=== PATIENT | male | born 1965 | race Caucasian/White ===

== ENCOUNTER 2021-04-16 15:31 | Emergency (ER) | payer SELFPAY ==
[~2021-04-16] VITALS: Ht 172.7 cm; Wt 118.2 kg
[2021-04-16] MEDS ORDERED: ONDANSETRON PF 4 MG/2 ML VIAL. IVP ONE (16:00)
[2021-04-16] MEDS ORDERED: IV NORMAL SALINE 1,000ML 1,000 ML IV ONE (16:00)
--- NOTE | 2021-04-16 16:11 | PHYS DOC ---
Past History Past Medical History: Diabetes, Kidney Stones Additional Past Medical Histor: BPH Past Surgical History: Tonsillectomy Additional Past Surgical Histo: lyphoma removal on back Alcohol Use: Rarely General Adult EDM: Chief Complaint: FLANK PAIN HPI: HPI: 55-year-old male presents with right flank pain. The patient had sudden onset of right flank pain at work earlier today. He was on his way to the hospital when the pain subsided so he went back to work. The patient then had a second episode that was worse than the first. He continues to have discomfort in the right flank radiating to the right groin. His original pain was sharp and 8 out of 10. He is currently at a cramping pain 4 out of 10. He did have one episode of vomiting in the ED. He has a history of kidney stones all of which have passed without intervention. Denies fever or chills. He has no other complaints at this time. Review of Systems: Review of Systems: Constitutional: Denies fever or chills Eyes: Denies change in visual acuity HENT: Denies nasal congestion or sore throat Respiratory: Denies cough or shortness of breath Cardiovascular: Denies chest pain or edema GI: Denies abdominal pain, nausea, vomiting, bloody stools or diarrhea : Denies dysuria Musculoskeletal: Right flank pain Integument: Denies rash Neurologic: Denies headache, focal weakness or sensory changes Endocrine: Denies polyuria or polydipsia Lymphatic: Denies swollen glands Psychiatric: Denies depression or anxiety Current Medications: Current Meds: Current Medications Medications (Trade) Dose Ordered Sig/Brandy Start Time Stop Time Status Last Admin Dose Admin Ondansetron HCl (Zofran) 4 mg 1X ONCE 04/16/21 16:00 04/16/21 16:03 DC Sodium Chloride 1,000 ml @ 1,000 mls/hr 1X ONCE 04/16/21 16:00 04/16/21 16:59 Tamsulosin HCl (Flomax) 0.4 mg 1X ONCE 04/16/21 16:15 04/16/21 16:16 UNV Allergies: Allergies: Allergies Coded Allergies Type Severity Reaction Last Updated Verified No Known Drug Allergies 04/16/21 No Physical Exam: PE: Constitutional: Well developed, well nourished, morbidly obese, no acute distress, non-toxic appearance. [] HENT: Normocephalic, atraumatic, bilateral external ears normal, oropharynx moist, no oral exudates, nose normal. [] Eyes: PERRLA, EOMI, conjunctiva normal, no discharge. [] Neck: Normal range of motion, no tenderness, supple, no stridor. [] Cardiovascular: Heart rate regular rhythm, no murmur [] Lungs & Thorax: Bilateral breath sounds clear to auscultation [] Abdomen: Bowel sounds normal, soft, no tenderness, no masses, no pulsatile masses. [] Skin: Warm, dry, no erythema, no rash. [] Back: No tenderness, mild right CVA tenderness. [] Extremities: No tenderness, no cyanosis, no clubbing, ROM intact, no edema. [] Neurologic: Alert and oriented X 3, normal motor function, normal sensory function, no focal deficits noted. [] Psychologic: Affect normal, judgement normal, mood normal. [] Current Patient Data: Vital Signs: Vital Signs Date Time Temp Pulse Resp B/P (MAP) Pulse Ox O2 Delivery O2 Flow Rate FiO2 04/16/21 15:53 98.0 71 18 160/92 (114) 98 Room Air EKG: EKG: [] Radiology/Procedures: Radiology/Procedures: [] Impressions: Exam: CT of abdomen and pelvis without contrast INDICATION: Right flank pain, hematuria TECHNIQUE: Sequential axial images through the abdomen and pelvis obtained without IV contrast. Sagittal and coronal reformatted images were reconstructed from the axial data and reviewed. Exposure: One or more of the following in the visualized dose reduction techniques were utilized for this examination: 1. Automated exposure control 2. Adjustment of the MA and/or KV according to patient size 3. Use of iterative of reconstructive technique Comparisons: None FINDINGS: Heart size is normal. No pericardial visualized lung bases are clear. No pleural effusion. Diffuse hepatic steatosis. Spleen, pancreas and adrenals are unremarkable. Gallbladder is partially distended and not well evaluated. There is mild right-sided hydronephrosis. There is a 5 mm calculus at the proximal right ureter. No other renal or ureteral calculi are identified. Bladder is partially distended and not well evaluated. Prostate is not enlarged. Large and small bowel are unremarkable. Appendix is normal. No free intra- abdominal air or fluid. No obstruction. Abdominal aorta has a normal course and caliber. No enlarged intra-abdominal lymph nodes are identified. Small fat-containing inguinal hernia. No suspicious osseous lesions or acute fractures. IMPRESSION: 1. A 5 mm callus at the proximal right ureter. There is mild associated right- sided hydronephrosis. 2. Diffuse hepatic steatosis. 3. Small fat-containing inguinal hernia. Electronically signed by: Olivia Leal MD (04/16/2021 4:57 PM) [facility] DICTATED AND SIGNED BY: OLIVIA LEAL MD DATE: 04/16/211648 CC: SANTI COVINGTON DO; VIET ROJAS ~MTH0 0 Heart Score: C/O Chest Pain: N/A Risk Factors: Risk Factors: DM, Current or recent (<one month) smoker, HTN, HLP, family history of CAD, obesity. Risk Scores: Score 0 - 3: 2.5% MACE over next 6 weeks - Discharge Home Score 4 - 6: 20.3% MACE over next 6 weeks - Admit for Clinical Observation Score 7 - 10: 72.7% MACE over next 6 weeks - Early Invasive Strategies Course & Med Decision Making: Course & Med Decision Making Pertinent Labs and Imaging studies reviewed. (See chart for details) The patient's labs are unremarkable except for creatinine of 1.4. I have no previous for comparison. CT scan does show a 5 mm stone in the distal ureter. See official read for more details. There is still a chance that this will pass. I will discharge the patient with [place] 5/325 and Flomax. I have encouraged him to drink lots of water. I also advised that he let his urologist know about his CT read in case patient needs follow-up procedure. He is stable for discharge at this time. [] Dragon Disclaimer: Dragon Disclaimer: This electronic medical record was generated, in whole or in part, using a voice recognition dictation system. Departure Departure: Impression: Primary Impression: Ureterolithiasis Disposition: HOME / SELF CARE / HOMELESS Condition: STABLE Referrals: VIET ROJAS (PCP) Patient Instructions: Kidney Stones, [id number] Scripts Tamsulosin Hcl (FLOMAX) 0.4 Mg Cap.er.24h 1 CAP PO DAILY for kidney stone, #10 CAP 0 Refills Prov: SANTI COVINGTON DO 04/16/21 Hydrocodone/Acetaminophen (Hydrocodone-Acetamin 5-325 mg) 1 Each Tablet 1 EACH PO Q4-6HRS PRN for PAIN, #10 TAB Prov: SANTI COVINGTON DO 04/16/21 SANTI COVINGTON DO Apr 16, 2021 16:11
[2021-04-16] MEDS ORDERED: MORPHINE SULFATE 4 MG/ML DISP.SYRIN. IV ONE (16:15)
[2021-04-16] MEDS ORDERED: TAMSULOSIN 0.4 MG CAP.ER.24H. PO ONE (16:15)
[2021-04-16 16:43] LABS: BASO # 0.1 x10^3/uL (0.0-0.2); BASO % 1 % (0-3); EOS # 0.3 x10^3/uL (0.0-0.7); EOS % 2 % (0-3); HEMATOCRIT 44.9 % (39.0-53.0); HEMOGLOBIN 15.2 g/dL (13.0-17.5); LYMPH # 1.7 x10^3/uL (1.0-4.8); LYMPH % 12 % (24-48); MEAN CORPUSCULAR HEMOGLOBIN 28 pg (25-35); MEAN CORPUSCULAR HGB CONC 34 g/dL (31-37); MEAN CORPUSCULAR VOLUME 82 fL (79-100); MONO # 0.9 x10^3/uL (0.0-1.1); MONO % 6 % (0-9); NEUT # 11.2 x10^3uL (1.8-7.7); NEUT % 79 % (31-73); PLATELET COUNT 245 x10^3/uL (140-400); RED BLOOD COUNT 5.45 x10^6/uL (4.30-5.70); RED CELL DISTRIBUTION WIDTH 14.4 % (11.5-14.5); WHITE BLOOD COUNT 14.2 x10^3/uL (4.0-11.0)
[2021-04-16 16:53] LABS: CALCIUM 9.4 mg/dL (8.5-10.1); CREATININE 1.4 mg/dL (0.7-1.3); GFR 52.4; POTASSIUM 3.6 mmol/L (3.5-5.1)
[2021-04-16 16:59] LABS: ALBUMIN/GLOBULIN RATIO 1.2 (1.0-1.7); TOTAL BILIRUBIN 0.5 mg/dL (0.2-1.0); TOTAL PROTEIN 7.4 g/dL (6.4-8.2)
--- NOTE | 2021-04-16 17:00 | RAD ---
Exam: CT of abdomen and pelvis without contrast INDICATION: Right flank pain, hematuria TECHNIQUE: Sequential axial images through the abdomen and pelvis obtained without IV contrast. Sagit moose and coronal reformatted images were reconstructed from the axial data and reviewed. Exposure: One or more of the following in the visualized dose reduction techniques were utilized for this examination: 1. Automated exposure control 2. Adjustment of the MA and/or KV according to patient size 3. Use of iterative of reconstructive technique Comparisons: None FINDINGS: Heart size is normal. No pericardial visualized lung bases are clear. No pleural effusion. Diffuse hepatic steatosis. Spleen, pancreas and adrenals are unremarkable. Gallbladder is partially d istended and not well evaluated. There is mild right-sided hydronephrosis. There is a 5 mm calculus at the proximal right ureter. No o ther renal or ureteral calculi are identified. Bladder is partially distended and not well evaluated. Prostate is not enlarged. Large and small bowel are unremarkable. Appendix is normal. No free intra-abdominal air or fluid. No obstruction. Abdominal aorta has a normal course and caliber. No enlarged intra-abdominal lymph nodes are identified. Small fat-containing inguinal hernia. No suspicious osseous lesions or acute fractures. IMPRESSION: 1. A 5 mm callus at the proximal right ureter. There is mild associated right-sided hydronephrosis. 2. Diffuse hepatic steatosis. 3. Small fat-containing inguinal hernia. Electronically signed by: Olivia Hahn MD (04/16/2021 4:57 PM) [facility]
[2021-04-16] MEDS ORDERED: HYDR-2759 PO (17:25)
[2021-04-16] MEDS ORDERED: TAMS0.4C97 PO (17:25)
[2021-04-16 18:53] VITALS: BP 156/88
[2021-04-16 18:57] LABS: CLARITY,URINE HAZY; COLOR,URINE BROWN
[2021-04-16 18:58] LABS: BILIRUBIN,URINE SMALL (NEG); GLUCOSE,URINE NEG (NEG); NITRITE,URINE NEG (NEG); UROBILINOGEN,URINE 0.2 mg/dL (0.2 mg/dL)
[2021-04-16 19:00] LABS: BACTERIA,URINE 0 /HPF (0-FEW); RBC,URINE >40 /HPF (0-2); SQUAMOUS EPITHELIAL CELL,UR FEW /LPF; WBC,URINE 0 /HPF (0-4)
== END 2021-04-16 19:17 | disposition home or self-care (01) ==
LOC: ER 15:31
DX: N20.1 Calculus of ureter (principal); E11.9 Type 2 diabetes mellitus without complications; Z87.442 Personal history of urinary calculi
CPT/HCPCS: 36415; 74176; 80053; 81001; 85025; 96361; 96374; 96375; 99284; J2270; J2405; J7030

== ENCOUNTER 2021-10-05 17:00 | Emergency (ER) | payer OTHER ==
[~2021-10-05] VITALS: Ht 172.7 cm; Wt 120.3 kg
[~2021-10-05 17:00] MED LIST: HYDR-2759 PO; TAMS0.4C97 PO
--- NOTE | 2021-10-05 17:44 | PHYS DOC ---
Past History Past Medical History: Diabetes, Kidney Stones Additional Past Medical Histor: BPH (JUAN SMALLS APRN) Past Surgical History: Tonsillectomy Additional Past Surgical Histo: lyphoma removal on back (JUAN SMALLS APRN) Alcohol Use: Rarely (JUAN SMALLS APRN) General Adult EDM: Chief Complaint: FLANK PAIN HPI: HPI: Patient is a 55-year-old male who presents to the emergency department today for right flank pain that radiates to his right lower abdomen that started this afternoon. Patient rates pain 7 out of 10. He is also reporting decreased urine output and nausea with 2 episodes of vomiting. Patient took Tylenol and hydrocodone prior to arrival. Patient reports that he has a history of kidney stones and that this feels just like his kidney stones. He also has a history of BPH. Patient denies any dysuria, hematuria, urinary frequency/urgency, blood in his vomit or stools. His vital signs are stable and he is afebrile. (JUAN SMALLS APRN) Review of Systems: Review of Systems: Constitutional: See HPI GI: See HPI : See HPI Musculoskeletal: See HPI (JUAN SMALLS APRN) Allergies: Allergies: Allergies Uncoded Allergies Type Severity Reaction Last Updated Verified seafood Allergy Severe soft pallette swelling, chest pain 10/05/21 (JUAN SMALLS APRN) Physical Exam: PE: Constitutional: Well developed, well nourished, no acute distress, non-toxic appearance. [] HENT: Normocephalic, atraumatic, bilateral external ears normal, oropharynx moist, no oral exudates, nose normal. [] Eyes: PERRL, EOMI, conjunctiva normal, no discharge. [] Neck: Normal range of motion, no stridor Cardiovascular:Heart rate regular rhythm, no murmur [] Lungs & Thorax: Bilateral breath sounds clear to auscultation [] Abdomen: Bowel sounds normal, soft, no tenderness, obese, no masses, no pulsatile masses. [] Skin: Warm, dry, no erythema, no rash. [] Back: No tenderness, right-sided CVA tenderness Extremities: No tenderness, no cyanosis, no clubbing, ROM intact, no edema. [] Neurologic: Alert and oriented X 3, normal motor function, normal sensory function, no focal deficits noted. [] Psychologic: Affect normal, judgement normal, mood normal. [] (JUAN SMALLS TRANSMISSIONS SYSTEMS OPERATOR) Current Patient Data: Labs: Laboratory Tests Test 10/05/21 17:52 White Blood Count 16.3 x10^3/uL Red Blood Count 5.45 x10^6/uL Hemoglobin 14.9 g/dL Hematocrit 44.3 % Mean Corpuscular Volume 81 fL Mean Corpuscular Hemoglobin 27 pg Mean Corpuscular Hemoglobin Concent 34 g/dL Red Cell Distribution Width 14.3 % Platelet Count 245 x10^3/uL Neutrophils (%) (Auto) 91 % Lymphocytes (%) (Auto) 5 % Monocytes (%) (Auto) 3 % Eosinophils (%) (Auto) 0 % Basophils (%) (Auto) 1 % Neutrophils # (Auto) 14.9 x10^3uL Lymphocytes # (Auto) 0.8 x10^3/uL Monocytes # (Auto) 0.4 x10^3/uL Eosinophils # (Auto) 0.0 x10^3/uL Basophils # (Auto) 0.1 x10^3/uL Segmented Neutrophils % 85 % Band Neutrophils % 4 % Lymphocytes % 7 % Monocytes % 2 % Basophils % 2 % Platelet Estimate Adequate Urine Collection Type Clean catch Urine Color Yellow Urine Clarity Clear Urine pH 5.5 Urine Specific [place] >=1.030 Urine Protein 30 mg/dl Urine Glucose (UA) Neg mg/dL Urine Ketones (Stick) Trace mg/dL Urine Blood Small Urine Nitrite Neg Urine Bilirubin Neg Urine Urobilinogen Dipstick 0.2 mg/dL Urine Leukocyte Esterase Neg Urine RBC Occ /HPF Urine WBC 0 /HPF Urine Bacteria 0 /HPF Sodium Level 135 mmol/L Potassium Level 4.0 mmol/L Chloride Level 99 mmol/L Carbon Dioxide Level 24 mmol/L Anion Gap 12 Blood Urea Nitrogen 17 mg/dL Creatinine 1.6 mg/dL Estimated GFR (Cockcroft-Gault) 44.9 BUN/Creatinine Ratio 11 Glucose Level 162 mg/dL Calcium Level 8.9 mg/dL Total Bilirubin 0.5 mg/dL Aspartate Amino Transf (AST/SGOT) 23 U/L Alanine Aminotransferase (ALT/SGPT) 58 U/L Alkaline Phosphatase 66 U/L Total Protein 7.2 g/dL Albumin 3.9 g/dL Albumin/Globulin Ratio 1.2 Current Medications Medications (Trade) Dose Ordered Sig/Brandy Route PRN Reason Start Time Stop Time Status Last Admin Dose Admin Sodium Chloride 1,000 ml @ 1,000 mls/hr Q1H IV 10/05/21 17:45 10/05/21 18:44 DC 10/05/21 17:45 Fentanyl Citrate (Fentanyl 2ml Vial) 50 mcg 1X ONCE IVP 10/05/21 17:45 10/05/21 17:56 DC 10/05/21 18:05 Ondansetron HCl (Zofran) 4 mg 1X ONCE IVP 10/05/21 17:45 10/05/21 17:56 DC 10/05/21 18:03 Ketorolac Tromethamine (Toradol 30mg Vial) 15 mg 1X ONCE IVP 10/05/21 17:45 10/05/21 17:56 DC 10/05/21 17:45 Sodium Chloride 1,000 ml @ 1,000 mls/hr 1X ONCE IV 10/05/21 19:15 10/05/21 20:14 10/05/21 19:09 (JUAN SMALLS APRN) EKG: EKG: [] (JUAN SMALLS APRN) Radiology/Procedures: Radiology/Procedures: []PROCEDURE: CT ABDOMEN PELVIS WO CONTRAST EXAMINATION: CT ABDOMEN+PELVIS WO CLINICAL HISTORY: Right flank pain, history of kidney stones TECHNIQUE: Imaging of the abdomen and pelvis was performed without intravenous contrast using standard technique, scanning from just above the dome of the diaphragm to the symphysis pubis. Unenhanced imaging is limited for the evaluation of some intra-abdominal and pelvic pathology. CT Dose Reduction Employed: One or more of the following individualized dose reduction techniques were utilized for this examination: 1. Automated exposure control 2. Adjustment of the mA and/or kV according to patient size 3. Use of iterative reconstruction technique. COMPARISON: 04/16/2021 FINDINGS: Minimal dependent bibasilar subsegmental atelectasis. Diffuse hypoattenuation of the hepatic parenchyma, compatible with steatosis.. Gallbladder, pancreas, spleen, and adrenal glands unremarkable. 6 mm calculus in the proximal right ureter with mild hydronephrosis, similar to prior study, with increased perinephric stranding compared to the prior study. No additional urinary calculi visualized. Minimally distended urinary bladder suboptimally evaluated. Moderate to markedly enlarged prostate with small calcification posteriorly. No dilated bowel. Appendix within normal limits. Mild arterial atherosclerotic calcification without aneurysm. 1.9 cm heterogeneous sclerotic density in the right posterolateral aspect of the L4 vertebral body, nonspecific. 4 mm sclerotic density in the posterior right ilium, possibly a bone island, and patchy sclerosis in the posterior left ilium underlying the SI joint, nonspecific. IMPRESSION: 6 mm calculus in the proximal right ureter with mild hydronephrosis, similar to prior study, with increased perinephric stranding. Enlarged prostate, correlate with PSA level. Nonspecific sclerotic densities in the L4 vertebral body and bilateral soraya as described, cannot entirely exclude metastatic lesions in the presence of prostatomegaly. Electronically signed by: Kt An DO (10/05/2021 6:21 PM) [facility] DICTATED AND SIGNED BY: KT AN DO DATE: 10/05/211810 CC: CARLOS AGUILAR; JUAN SMALLS APRN ~MTH0 0 (JUAN SMALLS APRN) Heart Score: C/O Chest Pain: N/A Risk Factors: Risk Factors: DM, Current or recent (<one month) smoker, HTN, HLP, family history of CAD, obesity. Risk Scores: Score 0 - 3: 2.5% MACE over next 6 weeks - Discharge Home Score 4 - 6: 20.3% MACE over next 6 weeks - Admit for Clinical Observation Score 7 - 10: 72.7% MACE over next 6 weeks - Early Invasive Strategies (JUAN SMALLS APRN) Course & Med Decision Making: Course & Med Decision Making Pertinent Labs and Imaging studies reviewed. (See chart for details) [] Patient presents to the emergency department for right flank pain. Patient has a history of kidney stones and states that this feels just like his kidney stones in the past. Work-up in the ER consisted of blood work, urinalysis and CT imaging of abdomen and pelvis. Patient treated with IV fluids, nausea and pain medication. Patient reports improvement in his symptoms following treatment in the emergency department. He was noted to have mild leukocytosis with a white blood cell count of 16.3. Patient does have prostate cancer. Patient's creatinine was 1.6 presents with his consistent with previous lab findings. Urinalysis did not show urinary tract infection. His CT scan of his abdomen did show a 6 mm stone in the right ureter with perinephric stranding. Patient reports that he has a urologist that he follows up with due to his prostate cancer. Patient will be discharged home with nausea medication, Flomax and an antibiotic. He is advised to contact his urologist first thing in the morning to follow-up. Patient's vital signs are stable and he is afebrile. I discussed possible treatment options with patient and he is agreeable to discharge home.I discussed patients case with supervising physician. I discussed with patient all findings and diagnostic testing as well as the need to follow-up with PCP for further evaluation and treatment or return to the ER if any new or worsening symptoms. Strict return precautions were also discussed at length. Patient voiced understanding and agreement with the plan. Patient is hemodynamically stable at the time of disposition. (JUAN SMALLS APRN) Dragon Disclaimer: Dragon Disclaimer: This electronic medical record was generated, in whole or in part, using a voice recognition dictation system. (JUAN SMALLS APRN) Departure Departure: Impression: Primary Impression: Kidney stone Disposition: 01 HOME / SELF CARE / HOMELESS Condition: GOOD Referrals: CARLOS AGUILAR (PCP) Patient Instructions: Kidney Stones Additional Instructions: You were seen in the emergency department today for flank pain. You have a 6 mm kidney stone on the right side. You are being discharged home with pain medication, for mild pain you can take ibuprofen but if you have severe pain please take this medication. This medication is hydrocodone and Tylenol and a combination tablet. This medication may cause drowsiness so do not take when you need to be alert, driving a vehicle or with alcohol.. To help with the stone expulsion we are sending you home with Flomax this will dilate your ureter and help the stone pass. Please strain your urines at home to check for passage of the stone. You are also being discharged home with an antibiotic. Please start and finish it completely. You need to follow-up with your urologist first thing in the morning. Please call them as soon as possible to set up an appointment. You may require a stent or lithotripsy for the stone if it does not pass. Please go to a hospital with urology coverage like [facility] if you develop worsening of your pain, intractable nausea or vomiting, high fevers refractory to treatment or any new or worsening concerns. Scripts Hydrocodone Bit/Acetaminophen (HYDROCODONE-APAP 5-325 ) 1 Each Tablet 1 TAB PO PRN Q6HRS PRN for PAIN for 2 Days, #8 TAB 0 Refills Prov: JUAN SMALLS APRN 10/05/21 Ciprofloxacin Hcl (CIPROFLOXACIN HCL) 500 Mg Tablet 1 TAB PO BID for infection for 7 Days, #14 TAB 0 Refills Prov: JUAN SMALLS APRN 10/05/21 Tamsulosin Hcl (FLOMAX) 0.4 Mg Cap.er.24h 1 CAP PO DAILY for kidney stone for 14 Days, #14 CAP 0 Refills Prov: JUAN SMALLS APRN 10/05/21 Attending Co-Sign Attending Co-Sign The patient was seen and interviewed as well as examined at the bedside. The chart was reviewed. The case was discussed. Agree with the plan of care. (LUZ CHASE MD) JUAN SMALLS APRN Oct 05, 2021 17:43 LUZ CHASE MD Oct 09, 2021 21:14
[2021-10-05] MEDS ORDERED: IV NORMAL SALINE 1,000ML 1,000 ML IV SCH (17:45)
[2021-10-05] MEDS ORDERED: KETOROLAC 30 MG/ML VIAL. IVP ONE (17:45)
[2021-10-05] MEDS ORDERED: ONDANSETRON PF 4 MG/2 ML VIAL. IVP ONE (17:45)
[2021-10-05 18:22] LABS: BASO # 0.1 x10^3/uL (0.0-0.2); BASO % 1 % (0-3); EOS % 0 % (0-3); HEMATOCRIT 44.3 % (39.0-53.0); HEMOGLOBIN 14.9 g/dL (13.0-17.5); LYMPH # 0.8 x10^3/uL (1.0-4.8); LYMPH % 5 % (24-48); MEAN CORPUSCULAR HEMOGLOBIN 27 pg (25-35); MEAN CORPUSCULAR HGB CONC 34 g/dL (31-37); MEAN CORPUSCULAR VOLUME 81 fL (79-100); MONO # 0.4 x10^3/uL (0.0-1.1); MONO % 3 % (0-9); NEUT # 14.9 x10^3uL (1.8-7.7); NEUT % 91 % (31-73); PLATELET COUNT 245 x10^3/uL (140-400); RED BLOOD COUNT 5.45 x10^6/uL (4.30-5.70); RED CELL DISTRIBUTION WIDTH 14.3 % (11.5-14.5); WHITE BLOOD COUNT 16.3 x10^3/uL (4.0-11.0)
--- NOTE | 2021-10-05 18:24 | RAD ---
EXAMINATION: CT ABDOMEN+PELVIS WO CLINICAL HISTORY: Right flank pain, history of kidney stones TECHNIQUE: Imaging of the abdomen and pelvis was performed without intravenous contrast using standar d technique, scanning from just above the dome of the diaphragm to the symphysis pubis. Unenhanced i maging is limited for the evaluation of some intra-abdominal and pelvic pathology. CT Dose Reduction Employed: One or more of the following individualized dose reduction techniques wer e utilized for this examination: 1. Automated exposure control 2. Adjustment of the mA and/or kV ac cording to patient size 3. Use of iterative reconstruction technique. COMPARISON: 04/16/2021 FINDINGS: Minimal dependent bibasilar subsegmental atelectasis. Diffuse hypoattenuation of the hepatic parenchyma, compatible with steatosis.. Gallbladder, pancreas, spleen, and adrenal glands unremarkable. 6 mm calculus in the proximal right ureter with mild hydronephrosis, similar to prior study, with inc reased perinephric stranding compared to the prior study. No additional urinary calculi visualized. Minimally distended urinary bladder suboptimally evaluated. Moderate to markedly enlarged prostate wi th small calcification posteriorly. No dilated bowel. Appendix within normal limits. Mild arterial atherosclerotic calcification without aneurysm. 1.9 cm heterogeneous sclerotic density in the right posterolateral aspect of the L4 vertebral body, n onspecific. 4 mm sclerotic density in the posterior right ilium, possibly a bone island, and patchy s clerosis in the posterior left ilium underlying the SI joint, nonspecific. IMPRESSION: 6 mm calculus in the proximal right ureter with mild hydronephrosis, similar to prior study, with inc reased perinephric stranding. Enlarged prostate, correlate with PSA level. Nonspecific sclerotic densities in the L4 vertebral body and bilateral soraya as described, cannot enti rely exclude metastatic lesions in the presence of prostatomegaly. Electronically signed by: Kt Crockett DO (10/05/2021 6:21 PM) [facility]
[2021-10-05 18:39] LABS: CALCIUM 8.9 mg/dL (8.5-10.1); CREATININE 1.6 mg/dL (0.7-1.3); GFR 44.9
[2021-10-05 18:45] LABS: ALBUMIN 3.9 g/dL (3.4-5.0); ALBUMIN/GLOBULIN RATIO 1.2 (1.0-1.7); TOTAL BILIRUBIN 0.5 mg/dL (0.2-1.0); TOTAL PROTEIN 7.2 g/dL (6.4-8.2)
[2021-10-05 19:11] LABS: % BANDS 4 % (0-9); % BASOS 2 % (0-3); % LYMPHS 7 % (24-48); % MONOS 2 % (0-10); % SEGS 85 % (35-66)
[2021-10-05 19:12] LABS: PLT ESTIMATE ADEQUATE (ADEQUATE)
[2021-10-05] MEDS ORDERED: IV NORMAL SALINE 1,000ML 1,000 ML IV ONE (19:15)
[2021-10-05 19:44] VITALS: BP 146/88
[2021-10-05 19:45] LABS: BILIRUBIN,URINE NEG (NEG); CLARITY,URINE CLEAR; COLOR,URINE YELLOW; GLUCOSE,URINE NEG (NEG)
[2021-10-05 19:46] LABS: BACTERIA,URINE 0 /HPF (0-FEW); NITRITE,URINE NEG (NEG); RBC,URINE OCC /HPF (0-2); UROBILINOGEN,URINE 0.2 mg/dL (0.2 mg/dL); WBC,URINE 0 /HPF (0-4)
[2021-10-05] MEDS ORDERED: CIPR500T2 PO (19:59)
[2021-10-05] MEDS ORDERED: TAMS0.4C97 PO (19:59)
[2021-10-05] MEDS ORDERED: HYDR-2155 PO (20:00)
== END 2021-10-05 20:17 | disposition home or self-care (01) ==
LOC: ER 17:00
DX: N13.2 Hydronephrosis with renal and ureteral calculous obstruction (principal); E11.9 Type 2 diabetes mellitus without complications; Z87.442 Personal history of urinary calculi; Z91.013 Allergy to seafood
CPT/HCPCS: 36415; 74176; 80053; 81001; 85007; 85025; 96361; 96374; 96375; 99284; J1885; J2405; J3010; J7030